=== PATIENT | male | born 1940 | race Caucasian/White ===

== ENCOUNTER 2021-05-01 07:54 | Inpatient (IN) | payer OTHER, BC ==
[~2021-05-01] VITALS: Ht 185.4 cm; Wt 72.6 kg
--- NOTE | ~2021-05-01 | EMS ---
[place] [id number] EMS Patient Care Report Name: ARTHUR MENEZES Room #: 212-P ADM IN M.R.#: [id number] Admission: 05/02/21 Attend Phys: Purnima Ham MD Discharge: Date of : 38 Report #: [id number] THIS REPORT FOR: //name// Report Transmitted: 05/03/2021 10:17 EMS Care Summary [place], [place]/[facility] Incident [id number] @ 05/01/2021 06:16 Incident Location [address] [facility] Patient ARTHUR MENEZES Male, 81 Years 1940 Patient Address [address] [place] [address] Patient History None Reported, Patient Allergies No known allergies, Patient Medications None Reported, Chief Complaint fall Disposition Transported No Lights/[place] Dispatch Reason Falls Transported To [facility] Narrative 81 y/o fall with AMS Upon arrival the pt was using the bathroom in the residence. The pt ambulated to the cot in the hallway, he placed himself on the cot, was secured to the cot and loaded into the ambulance. Pt has no obvious injuries or complaints. The [address] [address] EMS Patient Care Report Name: ARTHUR MENEZES Room #: 212-P ADM IN M.R.#: [id number] Admission: 05/02/21 Attend Phys: Purnima Ham MD Discharge: Date of : 38 Report #: [id number] pt is A&O x 1 with a GCS of 14. He has a patent airway, breathing is normal, and has a strong reg radial pulse. The pt has Hx of dementia / Alzheimer's. The pt VS were obtained, D-80 The pt was transported to [place] with out incident or changes with the pt during transport. EMS took the pt to a hallway bed. EMS returned to service. Initial Vitals @06:39P: 151,SpO2: 92, @06:39P: 107,R: 14,BP: 160/80,Pain: 0/10,GCS: 15,SpO2: 91,Revised Trauma: 12, Assessments @06:44MENTAL:Person Oriented,SKIN:HEENT:Head/Face: No Abnormalities,Neck/Airway: No Abnormalities,LUNG SOUNDS:General: No Abnormalities,ABDOMEN:General: No Abnormalities,PELVIS//GI:No Abnormalities,EXTREMITIES:Left Arm: No Abnormalities,Right Arm: No Abnormalities,Left Leg: No Abnormalities,Right Leg: No Abnormalities,PULSE:NEURO:No Abnormalities, Impression Altered Mental Status Procedures @06:44 ALS Assessment Response: UnchangedSucceeded Timeline 06:01,Call Received 06:01,Dispatch Notified 06:16,Dispatched 06:18,En Route 06:25,On Scene 06:26,At Patient 06:39,BP: / M,PULSE: 151,RR: R,SPO2: 92 Ox,ETCO2: ,BG: ,PAIN: ,GCS: , 06:39,BP: 160/80 M,PULSE: 107,RR: 14 R,SPO2: 91 Ox,ETCO2: ,BG: ,PAIN: 0,GCS: 15, 06:40,Depart Scene 06:44,ALS Assessment,Response: UnchangedSucceeded, 06:45,At Destination 07:03,Call Closed Disclaimer v1.1 Copyright 2021 [employer] This EMS Care Summary contains data elements from the applicable legal record (which may be displayed differently). It is designed to provide pertinent information for the following purposes: continuity of care, clinical quality, and state data reporting. The complete legal record is available to ED staff [address] [address] EMS Patient Care Report Name: ARTHUR MENEZES Room #: 212-P ADM IN M.R.#: [id number] Admission: 05/02/21 Attend Phys: Purnima Ham MD Discharge: Date of : 38 Report #: [id number] and administrators of the receiving hospital in [employer] Patient Tracker. All data is provided "as is."
[~2021-05-01 07:54] MED LIST: AMOXICILLIN 50500 M1 PO; CENTRUM SILVER1 EAC4 PO; CIPROFLOXACIN500 M1 PO; KEPPRA 500 MG500 M1 PO; KEPPRA250 MG PO; LAMICTAL XR200 MG PO; MAGNESIUM250 M1 PO; VALIUM2 MG PO
[2021-05-01 07:56] VITALS: BP 172/90
--- NOTE | 2021-05-01 08:18 | NUR ---
CALL PLACED TO JOSEY, DIRECTED TO MULTICUT LINE OPERATOR. CALLED BACK, GOT A HOLD OF SHAYNE, NURSING SPECIALIST WHO WILL CONTACT CINTHYA ROSAS WHO IS IN CHARGE OF UNIT
[2021-05-01] MEDS ORDERED: MAGNESIUM250 M1 PO (08:39)
[2021-05-01] MEDS ORDERED: D3 DOTS50 MCG PO (08:40)
[2021-05-01] MEDS ORDERED: LAMOTRIGINE PO (08:41)
[2021-05-01 11:07] LABS: HEMATOCRIT 36.7 % (42.0-52.0); HEMOGLOBIN 12.1 gm/dL (14.0-18.0); MCH 29.8 pg (26.0-34.0); MCHC 32.9 g/dL (28.0-37.0); MCV 90.8 fL (80.0-100.0); RBC 4.04 mil/uL (4.50-6.00); RDW 14.1 % (10.5-14.5); WBC 19.5 thou/uL (4.0-11.0)
[2021-05-01 11:15] LABS: CALCIUM 9.4 mg/dL (8.5-10.1); POTASSIUM 3.7 mmol/L (3.5-5.1)
[2021-05-01 11:58] LABS: PLATELET COUNT 426 thou/uL (150-400)
[2021-05-01 12:52] LABS: URINE BILIRUBIN NEGATIVE (Negative); URINE BLOOD 3+ (Negative); URINE COLOR YELLOW; URINE GLUCOSE-RANDOM* NEGATIVE (Negative); URINE KETONES 2+ (Negative); URINE LEUKOCYTES-REFLEX 2+ (Negative); URINE NITRITE-REFLEX POSITIVE (Negative); URINE PROTEIN (DIPSTICK) 2+ (Negative); URINE SPECIFIC GRAVITY >= 1.030 (1.005-1.035); URINE UROBILINOGEN 0.2 E.U./dl (0.2-1.0)
[2021-05-01 12:53] LABS: URINE CLARITY HAZY
[2021-05-01 13:07] LABS: BACTERIA-REFLEX >30 Many /HPF (None Seen); CASTS None Seen /LPF (None Seen); SQUAMOUS None Seen /LPF (0-3); URINE WBC-REFLEX >25 Many /HPF (0-5)
[2021-05-01 13:08] LABS: CRYSTALS None Seen /LPF (None Seen)
--- NOTE | 2021-05-01 16:13 | EKG ---
[address] [address] ELECTROCARDIOGRAM REPORT Name: ARTHUR MENEZES Room #: 170-2 ADM IN M.R.#: [id number] Admission: 05/01/21 Attend Phys: Purnima Ham MD Discharge: Date of : 36 Report #: [id number] [facility] ED Test Date: 2021-05-01 Test Time: 11:28:24 Pat Name: ARTHUR MENEZES Department: Room: 170 Gender: M Director Card: UNKNOWN : 1940 Requested By: Denis Anderson Order Number: [id number] MD: Tho Hinojosa Measurements Intervals Dwight Rate: 101 P: 65 CA: 176 QRS: -35 QRSD: 150 T: -26 QT: 382 QTc: 496 Interpretive Statements Sinus tachycardia Right bundle branch block No previous ECG available for comparison Electronically Signed On 05-01-2021 16:13:26 GRAIN SCOOPER by Tho Hinojosa [email or web address] <ELECTRONICALLY SIGNED> By: Tho Hinojosa MD, [facility] 05/01/21 1613 1128 1128 Tho Hinojosa MD, FACC /EPI
--- NOTE | 2021-05-01 16:16 | NUR ---
1219: Called [facility] transfer center d/t need for opthalmology for shingles w/ eye involvement. Was notified that all [facility] facilities are currenly closed to [id number] transfers. ERP notified. [facility], [facility], and [facility] all contacted for trans- andi and all facilities denied acceptance. 1615- [facility] called for transfer to [place].
[2021-05-02 09:00] LABS: ABSOLUTE NEUTROPHILS 13.6 thou/uL (1.4-8.2); BASOPHILS 0.6 % (0.0-2.0); EOSINOPHILS 0.1 % (0.0-3.0); HEMOGLOBIN 12.8 gm/dL (14.0-18.0); LYMPHOCYTES 4.3 % (24.0-44.0); MCH 30.4 pg (26.0-34.0); MCHC 33.7 g/dL (28.0-37.0); MCV 90.2 fL (80.0-100.0); PLATELET COUNT 450 thou/uL (150-400); RBC 4.21 mil/uL (4.50-6.00); RDW 14.2 % (10.5-14.5); WBC 16.6 thou/uL (4.0-11.0)
[2021-05-02 09:15] LABS: ALBUMIN 3.5 g/dL (3.4-5.0); CALCIUM 8.9 mg/dL (8.5-10.1); CREATININE 0.9 mg/dL (0.7-1.3); POTASSIUM 3.9 mmol/L (3.5-5.1); TOTAL BILIRUBIN 0.5 mg/dL (0.2-1.0); TOTAL PROTEIN 7.4 g/dL (6.4-8.2)
[2021-05-02 16:54] VITALS: BP 165/80
[2021-05-02 18:04] VITALS: BP 154/79
--- NOTE | 2021-05-02 18:18 | NUR ---
RECEIVED THIS PATIENT FROM THE ER AT 1800. PT SLEEPING AT THIS TIME AND DURING THE ADMISSION PROCESS. PT POOR HISTORIAN; AXOX1; PT COOPERATIVE AND EASILY REORIENTATED. PT DENIES ANY PAIN AT THIS TIME; DENIES SOA REMAINS ON ROOM AIR. PATIENT PLACED IN CONTACT PRECAUTIONS DUE TO SHINGLES; SHINGLES LESION NOTED TO THE LEFT SIDE OF THE FACE. RIGHT HAND IV DISCONTINUED DUE TO INFILTRATION; PATIENTS RIGHT HAND APPEARS RED, WARM, AND EDEMATOUS; ICE PACK APPLIED. DENIES ANY OTHER NEEDS AT THIS TIME. FALL PRECAUTIONS IN PLACE AND CALL LIGHT WITHIN REACH.
[2021-05-02 20:09] VITALS: BP 162/77
--- NOTE | 2021-05-02 23:02 | HC ---
[facility] [place] [address] CONSULTATION Name: ARTHUR MENEZES Room #: 212-P [facility] IN M.R.#: [id number] Admission: 05/02/21 Attend Phys: Purnima Ham MD Discharge: Date of : 38 Report #: [id number] THIS REPORT FOR: cc: Kleber Herman MD, Neal A. MD Geha,Riccardo Ko MD ~ DATE OF SERVICE: 05/01/2021 INFECTIOUS DISEASE CONSULTATION REASON FOR CONSULTATION: I was asked to evaluate concerning herpes zoster Ophthalmicus. HISTORY OF PRESENT ILLNESS: The patient is an 81-year-old, who presents to the Emergency Room after falling at home. This was unwitnessed. He typically walks with a walker, in that he has had a previous brain surgery in 1999, seizure disorder. Unclear why he had his brain surgery. He has also had a stroke. The patient could not give me further details of this incident. On presentation to the Emergency Room, he had evidence of shingles to the left face and periorbital region. He reports pain in the eye. He reports blurred vision. He has had no change in his hearing. He has had no issues with oral lesions. No history of cancer as far as I can determine or corticosteroid use or other immunosuppression. REVIEW OF SYSTEMS: A 14-point review of system was negative other than what has been described above. Denies any dysuria, frequency or hematuria. Denies any nausea, vomiting or diarrhea. Denies any back or flank pain. He reports lower extremity pain. PAST MEDICAL HISTORY: Brain surgery, stroke, seizure, appendectomy. MEDICATIONS: As noted on his MAR. ALLERGIES: None known. FAMILY HISTORY: Not known. SOCIAL HISTORY: No reported alcohol or drug use. PHYSICAL EXAMINATION: GENERAL: He is afebrile and hemodynamically stable. He was awake and conversant, although was confused. HEENT: He had left facial erythema and swelling with a vesicular rash and yellow crusting involved his left periorbital region, scalp, forehead and tip of his nose. There are no lesions to his ear or in his mouth. Neck was supple. There is scleral injection. Pupil was reactive to light. He was able to see [facility] [address] [place] [address] CONSULTATION Name: ARTHUR MENEZES Room #: 212-P [facility] IN M.R.#: [id number] Admission: 05/02/21 Attend Phys: Purnima Ham MD Discharge: Date of : 38 Report #: [id number] out of the left eye with gross vision, was unable to test reading capability. LUNGS: Clear. HEART: Regular, without murmur, gallop or rub. ABDOMEN: Soft and nontender. No hepatosplenomegaly or mass. No CVA tenderness. External genitalia without mass or lesion. RECTAL: Not performed. EXTREMITIES: Without clubbing, cyanosis or edema. Strength in his upper and lower extremities was symmetric. PSYCHIATRIC: Mood without anxiety. LABORATORY DATA: Reviewed. MICROBIOLOGY: Reviewed. IMAGING: CT scan of the facial bones reviewed. CT of the head without contrast reviewed. Chest x-ray reviewed. IMPRESSION: An 81-year-old presents with left zoster ophthalmicus. Unclear if there is any ocular involvement at this point. I have discussed with ER physician. Noticed no evidence of gross keratitis. We do not have a dilated examination. No Mincing Machine Operator is available at this institution. He does have confusional state, which is unclear if this is related to his zoster or related to urinary tract infection with subsequent sepsis picture. His fall is without acute injury noted. He does have hypertension, previous stroke, seizure disorder. RECOMMENDATION: We will continue IV acyclovir. Further imaging of his brain and orbital region by MRI scan. Have Neurology evaluate. We will arrange Ophthalmology evaluation if possible. Treat urinary tract infection. Serial laboratory studies, fluid resuscitation and monitor creatinine while on acyclovir. <ELECTRONICALLY SIGNED> By: Riccardo Quinones MD 05/02/21 2302 1637 11 Riccardo Quinones MD /nt
[2021-05-02 23:22] VITALS: BP 137/66
[2021-05-03 02:21] LABS: ABSOLUTE NEUTROPHILS 9.9 thou/uL (1.4-8.2); BASOPHILS 0.9 % (0.0-2.0); EOSINOPHILS 0.3 % (0.0-3.0); HEMATOCRIT 37.1 % (42.0-52.0); HEMOGLOBIN 11.9 gm/dL (14.0-18.0); LYMPHOCYTES 5.5 % (24.0-44.0); MCH 29.4 pg (26.0-34.0); MCHC 32.2 g/dL (28.0-37.0); MCV 91.4 fL (80.0-100.0); MONOCYTES 14.3 % (1.0-8.0); RBC 4.06 mil/uL (4.50-6.00); RDW 14.4 % (10.5-14.5); WBC 12.5 thou/uL (4.0-11.0)
[2021-05-03 02:44] LABS: PLATELET COUNT 311 thou/uL (150-400)
--- NOTE | 2021-05-03 03:26 | NUR ---
ASSUMED PT CARE AT 1900.PT ALERT AND AWAKE AT SHIFT CHANGE.PT CONSTANTLY REQUESTING FOR HIS MEDS,TOOK HS MEDS OKAY AFTER IDENTIFYING THEM.L SIDE OF FACE SWOLLEN AND WITH LESIONS THAT EXTENDS T HIS FOREHEAD.R HAND SWOLLEN FROM IV INFILTRATION FROM THE PREVIOUS SHIFT.PT INCONTINENT,CONDOM CATH IN PLACE AT THIS TIME.PT CONT ON IVF AND IV ABX ORDERED.FALL AND SX PRECAUTIONS MAINTAINED.
[2021-05-03 04:28] VITALS: BP 165/83
[2021-05-03 04:54] LABS: CALCIUM 8.4 mg/dL (8.5-10.1); CREATININE 0.9 mg/dL (0.7-1.3); POTASSIUM 4.2 mmol/L (3.5-5.1)
[2021-05-03 07:37] VITALS: BP 134/64
--- NOTE | 2021-05-03 14:18 | NUR ---
Tranfer request called to [facility], [facility], and [facility]. [facility] and [facility] are not open to any transfers and will not due opthalmology consults. [facility] is looking at his referral. Face sheet and clinical faxed and imaging uploaded to the cloud. They may be able to do a consult if they can not accept. Dr. Ham updated. Will follow.
--- NOTE | 2021-05-03 16:33 | NUR ---
AT 0830 RN ATTEMPTED TO GIVE PT HIS 9AM MEDS. PT WAS CONFUSED AND KEPT SAYING HE ALREADY HAD THEM THIS MORNING. RN TRIED TO EXPLAIN THAT THE MED HE WAS THINKING OF WAS THE 6AM MED. PT ABSOLUTELY REFUSED HIS 9AM MEDS. AT 1430, RN STARTED PTS IV ACYCLOVIR. AT 1500, RN SAW IV WAS INFILTRATED. RN STOPPED IV AND REMOVED THE IV CATH. AT 1635, IV TEAM REINSERTED A 22G.
== END 2021-05-03 21:00 | disposition short-term general hospital (02) | DRG 871 ==
LOC: ER 07:54 → EROBS 13:32 → 2N 05-02 11:19
PROVIDERS: Nurse Practitioner; Specialist; Student in an Organized Health Care Education/Training Program; ADMIT Hospitalist; ATTEND Hospitalist
DX: A41.01 Sepsis due to Methicillin susceptible Staphylococcus aureus (principal); G93.41 Metabolic encephalopathy; B02.30 Zoster ocular disease, unspecified; N39.0 Urinary tract infection, site not specified; H05.012 Cellulitis of left orbit; B02.31 Zoster conjunctivitis; Z23 Encounter for immunization; Z20.822 Contact with and (suspected) exposure to COVID-19; G40.909 Epilepsy, unspecified, not intractable, without status epilepticus; Z66 Do not resuscitate; B95.61 Methicillin susceptible Staphylococcus aureus infection as the cause of diseases classified elsewhere; F03.90 Unspecified dementia, unspecified severity, without behavioral disturbance, psychotic disturbance, mood disturbance, and anxiety; S06.9X0A Unspecified intracranial injury without loss of consciousness, initial encounter; Z90.49 Acquired absence of other specified parts of digestive tract; Z86.73 Personal history of transient ischemic attack (TIA), and cerebral infarction without residual deficits; X58.XXXA Exposure to other specified factors, initial encounter; Y93.89 Activity, other specified; Y92.89 Other specified places as the place of occurrence of the external cause; Y99.8 Other external cause status
CPT/HCPCS: 10081